=== PATIENT | female | born 1965 | race Caucasian/White ===

== ENCOUNTER 2016-07-09 13:57 | Emergency (ER) | payer SELFPAY ==
--- NOTE | ~2016-07-09 | ER ---
PATIENT'S NAME: AMADO LAZAR [facility] AGE: 50 Y [address] ROOM: [place] [id number] LOCATION: [facility] ADMIT DATE: 07/09/2016 ER/Outpatient Report DISCHARGE DATE: 07/09/2016 FAMILY PHYSICIAN: PHYSICIAN, NO ATTENDING PHYSICIAN: Beau Blank Time of Arrival: 1357 hours. Time of Evaluation: 1410 hours. CHIEF COMPLAINT: Chronic pain. HISTORY OF PRESENT ILLNESS: This is a 50-year-old female, who presents to the ER, who states she has had chronic pain from osteoarthritis since 1993. She states she has had a previous right ankle injury with surgery in 2002 that was in [place]. She states that she recently moved here from [place] and thinks due to the weather change she is having achiness in her right ankle, shoulder, and her muscles. She states she has not been running any fevers. She denies any recent upper respiratory infection. No shortness of breath. No cough. No abdominal pain. She states she feels very nauseated from the pain. She states that she was seen a pain specialist down in [place], but she has not taken anything for prescription medications for quite some time. She states that she has been taking Tylenol and ibuprofen with no relief of her pain. She has not established any care for primary care physician in [place] yet. She states that she is [facility] this [facility]. ALLERGIES: PENICILLIN, TREE NUTS. MEDICATIONS: Tylenol and ibuprofen. PAST MEDICAL HISTORY: Osteoarthritis, chronic pain, and she has C4-C7 fusion. PAST SURGICAL HISTORY: Right ankle surgery. SOCIAL HISTORY: Smokes half pack to one pack a day for the last 30 years. She does smoke marijuana for her pain, last smoke that last night. REVIEW OF SYSTEMS: PATIENT'S NAME: AMADO LAZAR [facility] AGE: 50 Y [address] ROOM: [place] [address] LOCATION: [facility] ADMIT DATE: 07/09/2016 ER/Outpatient Report DISCHARGE DATE: 07/09/2016 FAMILY PHYSICIAN: PHYSICIAN, NO ATTENDING PHYSICIAN: Beau Blank A 10-point review of systems was completed and was negative with the exception of those discussed in the HPI. PHYSICAL EXAMINATION: VITAL SIGNS: Height 5 feet and 1-1/2 inches stated, weight 42.2 kg taken, blood pressure is 172/103, pulse 98, respirations 16, temperature 99.2 degrees tympanically, and saturations 97% on room air. [place] Coma score is 15. GENERAL: Alert, very thin female, in no acute distress. HEENT: Head: Normocephalic. Eyes: Pupils are equal and reactive to light. She does display moist mucous membranes. LUNGS: Clear to auscultation bilaterally. No wheezes or crackles. Normal respiratory effort. HEART: Regular rate and rhythm. No lifts, thrills, or murmurs. EXTREMITIES: No clubbing or cyanosis. She does have generalized achiness and pain in her right ankle. She has scarring over her right ankle as well. I do not appreciate any swelling, ecchymosis, or erythema. She has a good pulse there as well. She does have some tenderness in her right trapezius muscle as well. She does have full range of motion of her neck. She has full range of motion of her upper extremities as well. LABORATORY DATA AND X-RAYS: None were done. IMPRESSION: Chronic pain in right ankle and right lateral neck. ASSESSMENT AND PLAN: We did give the patient a shot of Toradol 60 mg IM here in the emergency room. I will dismiss her to home with a prescription for [place] and Flexeril to use as directed, and Zofran for nausea from pain medications. We did give her pain clinic information. We did send her information for Orthopedics here in town as well. She needs to ice, monitor her symptoms, and we would like her to establish care with a primary care physician as soon as possible. The patient understands and agrees with care. CAROLYN HOWELL PA-C FOR MD ELIECER GARCIA/[place] /[id number] d: 07/09/16 2156 t: 07/23/16 0813, OUTPATIENT REPORT
== END 2016-07-09 14:42 | disposition disaster alternative care site (69) ==
LOC: GMED 13:57
DX: G89.29 Other chronic pain (principal); M25.571 Pain in right ankle and joints of right foot; M54.2 Cervicalgia; F17.210 Nicotine dependence, cigarettes, uncomplicated; M19.90 Unspecified osteoarthritis, unspecified site; Z98.1 Arthrodesis status; Z98.890 Other specified postprocedural states; Z88.0 Allergy status to penicillin; Z91.018 Allergy to other foods
CPT/HCPCS: J1885